=== PATIENT | male | born 1945 | race Caucasian/White ===

== ENCOUNTER 2020-05-04 11:00 | Outpatient (RCR) | payer MEDICARE, SELFPAY ==
[2020-02-16 10:01] VITALS: BMI 30.1
[2020-05-04 10:51] VITALS: BMI 29.7
[2020-05-04 10:56] VITALS: BMI 29.7
== END 2020-05-16 23:59 | disposition home or self-care (01) ==
LOC: ANHDMC 11:00
PROVIDERS: PCP Internal Medicine; Visit Provider Internal Medicine
DX: E11.9 Type 2 diabetes mellitus without complications (principal); Z71.3 Dietary counseling and surveillance
CPT/HCPCS: 97802; 97803

== ENCOUNTER 2020-07-26 11:04 | Outpatient (RCR) | payer MEDICARE, SELFPAY | END 2020-10-11 13:22 | disposition home or self-care (01) | LOC: ANHDMC 11:04 | PROVIDERS: PCP Internal Medicine; Visit Provider Internal Medicine | DX: E11.9 Type 2 diabetes mellitus without complications (principal); Z71.3 Dietary counseling and surveillance | CPT/HCPCS: 97803 ==

== ENCOUNTER 2020-11-10 17:03 | Outpatient (CLI) | payer MEDICARE, SELFPAY | END 2020-11-10 17:04 | disposition home or self-care (01) | LOC: ANHCOVIDVC 17:03 | PROVIDERS: PCP Internal Medicine | DX: Z23 Encounter for immunization (principal) | CPT/HCPCS: 0001A; 91300 ==

== ENCOUNTER 2020-12-01 17:00 | Outpatient (CLI) | payer MEDICARE, SELFPAY | END 2020-12-01 17:01 | disposition home or self-care (01) | LOC: ANHCOVIDVC 17:00 | PROVIDERS: PCP Internal Medicine | DX: Z23 Encounter for immunization (principal) | CPT/HCPCS: 0002A; 91300 ==

== ENCOUNTER 2021-07-28 01:48 | Day surgery (SDC) | payer MEDICARE, SELFPAY ==
[2021-07-12 15:06] VITALS: BMI 30.4
--- NOTE | 2021-07-27 12:26 | PM.HPGS ---
History of Present Illness History of Present Illness Consent: Risks, benefits, and alternatives have been discussed and questions answered. Patient agrees to proceed with procedure. Chief complaint: hx colon polyps Narrative: Norberto Valentin is a 75 year old male Referred for colon cancer screening Review of Systems Review of Systems: All systems reviewed & are unremarkable except as noted in HPI and below PMFSH Family History Family History Mother Family history of renal failure, Onset Age: 87 Patient's mother is Father Patient's father is Sibling Patient's brother is Social History Social History Smoking packs per day: 1 Smoking cigarettes per day: 20.0 Years smoked: 25 Smoking pack-years: 25.00 Smoking status: Former smoker Tobacco type: cigarettes Second hand tobacco smoke exposure: Yes Smoking end date: 09/09/91 Alcohol intake: current Drinks per week: 2 Living arrangements: with family Spiritual care concerns: No Meds Home Medications and Allergies Home Medications Medication Instructions Recorded Confirmed Type losartan 50 mg tablet 50 mg PO DAILY #90 tablet 12/05/20 07/28/21 Rx metformin 500 mg tablet 500 mg PO BID #180 tablet 12/05/20 07/28/21 Rx pravastatin 40 mg tablet 40 mg PO DAILY #90 tablet 12/05/20 07/28/21 Rx lorazepam 0.5 mg tablet 0.5 mg PO BID PRN #30 tablet 06/19/21 07/28/21 Rx aspirin 81 mg PO DAILY 07/12/21 07/28/21 History Allergies Allergy/AdvReac Type Severity Reaction Status Date / Time No Known Allergies Allergy Unknown Verified 07/28/21 09:16 Exam Const: General: alert Orientation/consciousness: patient oriented x3 Resp: Auscultation: clear to auscultation bilaterally Cardio: Rhythm: regular rhythm GI: GI Palp: Yes Soft to palpation and No Tenderness to palpation present (GI) Neuro: General: patient oriented x3 Assessment and Plan Assessment and plan (1) Colon cancer screening: Code(s): Z12.11 - Encounter for screening for malignant neoplasm of colon Status: Acute Assessment and Plan: Colonoscopy with possible biopsy or polypectomy or cautery or injection of substances.
[2021-07-28 09:17] VITALS: BP 147/72; PULSE 58; RESP 16; TEMP 36.6; O2SAT 100; BMI 30.7
[2021-07-28] MEDS: LACTATED RINGERS 1,000 ML 150 ML IV CONT (09:20)
[2021-07-28 09:32] LABS: Glucose Point of Care 151 mg/dl (65-105)
--- NOTE | 2021-07-28 09:49 | WPDANESEPPF ---
Anes - Initial Pre Proc Eval Procedure: Operation Date: 07/28/21 10:15 Proposed Procedures p Screening Colonoscopy - Nick Lara MD Date/Time: 07/28/21 09:49 Surgeon: Nikc Lara MD Pre Op Diagnosis: hx colon polyps Patient Data Age: 75 Gender: M Height: 1.83 m Weight: 102.7 kg Last Vital Signs Temp 97.9 F 07/28/21 09:17 Pulse 58 L 07/28/21 09:17 Resp 16 07/28/21 09:17 BP 147/72 H 07/28/21 09:17 Pulse Ox 100 07/28/21 09:17 Allergies Allergy/AdvReac Type Severity Reaction Status Date / Time No Known Allergies Allergy Unknown Verified 07/28/21 09:16 Home Medications Medication Instructions Recorded Confirmed Type losartan 50 mg tablet 50 mg PO DAILY #90 tablet 12/05/20 07/28/21 Rx metformin 500 mg tablet 500 mg PO BID #180 tablet 12/05/20 07/28/21 Rx pravastatin 40 mg tablet 40 mg PO DAILY #90 tablet 12/05/20 07/28/21 Rx lorazepam 0.5 mg tablet 0.5 mg PO BID PRN #30 tablet 06/19/21 07/28/21 Rx aspirin 81 mg PO DAILY 07/12/21 07/28/21 History Laboratory Tests 07/28/21 09:29 POC Capillary Glucose 151 mg/dl H mg/dl (65-105) Patient hx anesthesia problems: none Family hx anesthesia problems: none Results Review: All pre-operative results and documents have been reviewed as part of the pre-operative evaluation. [facility] Family History Family History Mother Family history of renal failure, Onset Age: 87 Patient's mother is Father Patient's father is Sibling Patient's brother is Social History Social History Smoking packs per day: 1 Smoking cigarettes per day: 20.0 Years smoked: 25 Smoking pack-years: 25.00 Smoking status: Former smoker Tobacco type: cigarettes Second hand tobacco smoke exposure: Yes Smoking end date: 09/09/91 Alcohol intake: current Drinks per week: 2 Living arrangements: with family Spiritual care concerns: No Anes - Eval Final PreProcedure Day of Procedure 07/28/21 09:49 Patient weight: obese Heart: regular rate and rhythm Lungs: clear to auscultation Airway: Mallampati scale class II Neurological: alert and oriented Last oral intake: >/= 8 hours ASA classification: III Emergent: no Anesthetic plan: proceed Anesthesia type and monitoring: general GIVS and standard monitoring Results Review: All pre-operative results and documents have been reviewed as part of the pre-operative evaluation. Informed Consent: The patient's anesthetic plan and its attendant risks and benefits were discussed with the patient/family/POA. Questions were solicited and answers provided to the satisfaction of the patient/family/POA.
[2021-07-28 10:29] VITALS: BP 94/50; PULSE 62; RESP 18; O2SAT 99
[2021-07-28 10:39] VITALS: BP 111/47; PULSE 55; RESP 13; O2SAT 98
[2021-07-28 10:49] VITALS: BP 114/49; PULSE 61; RESP 17; O2SAT 99
== END 2021-07-28 10:56 | disposition home or self-care (01) ==
PROVIDERS: PCP Internal Medicine; Visit Provider Internal Medicine Gastroenterology
PROC: 0DJD8ZZ Inspection of Lower Intestinal Tract, Via Natural or Artificial Opening Endoscopic (ICD-10-PCS; CPT 45378; principal; 2021-07-28 10:15)
DX: Z12.11 Encounter for screening for malignant neoplasm of colon (principal); K63.5 Polyp of colon; K57.30 Diverticulosis of large intestine without perforation or abscess without bleeding; Z79.82 Long term (current) use of aspirin; Z79.84 Long term (current) use of oral hypoglycemic drugs; Z87.891 Personal history of nicotine dependence; E66.9 Obesity, unspecified; Z68.30 Body mass index [BMI] 30.0-30.9, adult
CPT/HCPCS: 45385; 82948; 88305; J7120

== ENCOUNTER 2022-01-10 08:07 | Outpatient (CLI) | payer MEDICARE, SELFPAY ==
--- NOTE | ~2022-01-10 | NM_ITS ---
EXAMINATION: NM stress w perf spect multi DATE: 01/10/2022 10:35 INDICATION: Chest pain. TECHNIQUE: Rest images were obtained following intravenous administration of 10.7 mCi Tc99m tetrofosm in (Myoview). The patient performed an exercise activity. At peak exercise, 31.6 mCi Tc99m tetrofosmi n (Myoview) was administered intravenously, and supine and prone stress images were obtained. Data wa s reconstructed into short axis and horizontal and vertical long axis SPECT images. Gated SPECT image s were also obtained. COMPARISON: None. FINDINGS: There is a moderate-sized, mild, fixed perfusion defect involving apical septal, mid collette septal, and mid to basal anterior segments of left ventricle, consistent with infarct. No reversible component to suggest ischemia. There is inferoseptal hypokinesis. Left ventricular ejection fractio n measures 41%. IMPRESSION: 1. Moderate-sized area of mild infarct involving apical septal, mid anteroseptal, and mid to basal an terior segments of left ventricle. 2. Inferoseptal hypokinesis with left ventricular ejection fraction measuring 41%. Reviewed, dictated and finalized at location B. IMPRESSION: 1. Moderate-sized area of mild infarct involving apical septal, mid anterosepta l, and mid to basal anterior segments of left ventricle. 2. Inferoseptal hypokinesis with left ventricular ejection fraction measuring 4 1%.
--- NOTE | 2022-01-10 09:09 | EST_ITS ---
Patient Info Name: Norberto Valentin Age: 76 years : 1945 Gender: Male Ht: 72 in Wt: 220 lbs BSA: 2.27 m2 Exam Date: 01/10/2022 9:19 AM Exam Location: [facility] Stress Patient Status: Outpatient Admit Date: 01/10/2022 Staff Ordering Physician: Young Robb DO Attending Provider: Young Robb DO Exercise Technologist: Cyrus Mas RDCS, RT Exercise Physician: Pato Hardy DO Exam Type: CA stress test treadmill w NM Study Info Indications R07.9 - Chest pain, unspecified A nuclear stress test was performed. Summary 1. 1. Negative Karl exercise stress test for ischemic ST changes by ECG criteria. 2. 2. Reduced functional capacity, achieving 6 METs of workload. 3. 3. Baseline hypertension. 4. 4. Appropriate HR response to exercise. 5. 5. Appropriate HR recovery at 1 minute post exercise. 6. 6. Nuclear scan to follow and will be reported separately. Please correlate with it. 7. 7. Patient informed of the above results. Protocol: Karl Stress ECG Details Stage: REST Duration (min): 4 min : 59 sec Speed (mph): 0.0 Grade (%): 0 HR (bpm): 61 SBP (mmHg): 142 DBP (mmHg): 77 METS: --- Stage: REST Duration (min): 5 min : 3 sec Speed (mph): 0.0 Grade (%): 0 HR (bpm): 61 SBP (mmHg): 142 DBP (mmHg): 77 METS: --- Stage: STAGE 1 Duration (min): 1 min : 0 sec Speed (mph): 1.7 Grade (%): 10 HR (bpm): 88 SBP (mmHg): 142 DBP (mmHg): 77 METS: --- Stage: STAGE 1 Duration (min): 2 min : 0 sec Speed (mph): 1.7 Grade (%): 10 HR (bpm): 101 SBP (mmHg): 142 DBP (mmHg): 77 METS: --- Stage: STAGE 1 Duration (min): 3 min : 0 sec Speed (mph): 1.7 Grade (%): 10 HR (bpm): 110 SBP (mmHg): 149 DBP (mmHg): 74 METS: --- Stage: STAGE 2 Duration (min): 1 min : 0 sec Speed (mph): 2.5 Grade (%): 12 HR (bpm): 125 SBP (mmHg): 149 DBP (mmHg): 74 METS: --- Stage: STAGE 2 Duration (min): 1 min : 8 sec Speed (mph): 2.5 Grade (%): 12 HR (bpm): 128 SBP (mmHg): 149 DBP (mmHg): 74 METS: --- Stage: RECOVERY Duration (min): 0 min : 51 sec Speed (mph): 0.0 Grade (%): 0 HR (bpm): 125 SBP (mmHg): 152 DBP (mmHg): 72 METS: --- Stage: RECOVERY Duration (min): 1 min : 51 sec Speed (mph): 0.0 Grade (%): 0 HR (bpm): 109 SBP (mmHg): 152 DBP (mmHg): 72 METS: --- Stage: RECOVERY Duration (min): 2 min : 51 sec Speed (mph): 0.0 Grade (%): 0 HR (bpm): 97 SBP (mmHg): 167 DBP (mmHg): 73 METS: --- Stage: RECOVERY Duration (min): 3 min : 51 sec Speed (mph): 0.0 Grade (%): 0 HR (bpm): 89 SBP (mmHg): 167 DBP (mmHg): 73 METS: --- Stage: RECOVERY Duration (min): 4 min : 51 sec Speed (mph): 0.0 Grade (%): 0 HR (bpm): 83 SBP (mmHg): 159 DBP (mmHg): 71 METS: ---
== END 2022-01-10 08:08 | disposition home or self-care (01) ==
PROVIDERS: PCP Internal Medicine; Visit Provider Internal Medicine
DX: R07.89 Other chest pain (principal); I21.9 Acute myocardial infarction, unspecified
CPT/HCPCS: 78452; 93017; A9502

== ENCOUNTER 2022-02-26 13:35 | Outpatient (CLI) | payer MEDICARE, SELFPAY ==
--- NOTE | 2022-02-26 14:01 | ECHO_ITS ---
Patient Info Name: Norberto Valentin Age: 76 years : 1945 Gender: Male Ht: 72 in Wt: 220 lbs BSA: 2.27 m2 HR: 61 bpm BP: 131 / 73 mmHg Technical Quality: Good Exam Date: 02/26/2022 2:33 PM Exam Location: [facility] Patient Status: Outpatient Admit Date: 02/26/2022 Staff Ordering Physician: Pato Hardy DO Residential Door Installer: Zaira Cooper RDCS Attending Provider: Pato Hardy DO Referring Physician: Antony IBRAHIM; Exam Type: CA echo doppler color flow Study Info Indications - dyspnea Complete two-dimensional, color flow and Doppler transthoracic echocardiogram is performed. Summary 1. Complete two-dimensional, color flow and Doppler transthoracic echocardiogram is performed. 2. Left ventricular chamber dimension is normal. 3. There is moderate concentric increased left ventricular wall thickness. 4. Left ventricular septal wall motion is abnormal with septal motion related to bundle branch block. 5. Left ventricular systolic function is preserved, estimated at 50-55%. 6. Basal to mid inferior wall is thin and akinetic. 7. The left ventricular diastolic function is grade I diastolic dysfunction. 8. E/e' 10 is mildly elevated. 9. Global longitudinal strain is abnormal at -13.2%. 10. Left atrial chamber dimension is mildly enlarged. 11. There is mild aortic valve sclerosis. 12. There is mild mitral valve regurgitation. 13. There is mild tricuspid valve regurgitation. 14. No pulmonary hypertension, estimated pulmonary arterial systolic pressure is 21 mmHg. Left Ventricle Left ventricular systolic function is preserved, estimated at 50-55%. Basal to mid inferior wall is thin and akinetic. E/e' 10 is mildly elevated. Global longitudinal strain is abnormal at -13.2%. Left ventricular chamber dimension is normal. There is moderate concentric increased left ventricular wall thickness. Left ventricular septal wall motion is abnormal with septal motion related to bundle branch block. The left ventricular diastolic function is grade I diastolic dysfunction. Right Ventricle Right ventricular chamber dimension is normal. Right ventricular systolic function is normal. Left Atria Left atrial chamber dimension is mildly enlarged. Right Atria Right atrial chamber dimension is normal. Aortic Valve The aortic valve is trileaflet. There is mild aortic valve sclerosis. There is no aortic valve stenosis. There is no aortic valve regurgitation. Pulmonic Valve There is no pulmonic regurgitation. Mitral Valve There is no mitral valve stenosis. There is mild mitral valve regurgitation. Tricuspid Valve There is mild tricuspid valve regurgitation. No pulmonary hypertension, estimated pulmonary arterial systolic pressure is 21 mmHg. Pericardium/Pleural There is no pericardial effusion. Inferior Vena Cava Normal inferior vena cava with >50% collapse upon inspiration consistent with normal right atrial pressure, 5 mmHg. Aorta The aortic root size at the sinus of Valsalva is normal. Left Ventricular Outflow Tract Name Value Normal LVOT 2D LVOT Diameter 2.0 cm LVOT Doppler LVOT Pe
== END 2022-02-26 13:36 | disposition home or self-care (01) ==
LOC: ANHCARD 13:37
PROVIDERS: PCP Internal Medicine; Visit Provider Internal Medicine Cardiovascular Disease
DX: R06.00 Dyspnea, unspecified (principal); I34.0 Nonrheumatic mitral (valve) insufficiency; I35.1 Nonrheumatic aortic (valve) insufficiency; I36.1 Nonrheumatic tricuspid (valve) insufficiency
CPT/HCPCS: 93306

== ENCOUNTER 2022-08-20 12:14 | Outpatient (CLI) | payer MEDICARE, SELFPAY ==
[2022-08-20 13:10] LABS: Appearance Urine Clear (Clear); Bilirubin Urine Negative (Negative); Blood Urine Negative (Negative); Glucose Urine UA Trace mg/dL (Negative); Ketones Urine Negative (Negative); Leukocyte Esterase Ur Negative LEU/UL (Negative); Nitrate Urine Negative (Negative); Protein Urine Negative (Negative); Specific Grav Ur >= 1.030 (1.001-1.035); Urobilinogen Urine 0.2 mg/dL (<2.0)
[2022-08-20 13:30] LABS: Mucus Urine Rare /lpf; RBC Urine 0-2 /hpf (0-2); Squamous Epithelial Cell Urine Rare /hpf (Few); WBC Urine 0-3 /hpf
[2022-08-20 13:35] LABS: Add Urine Microscopic? YES; Color Urine Light Yellow (Yellow)
== END 2022-08-20 12:15 | disposition home or self-care (01) ==
PROVIDERS: PCP Internal Medicine; Visit Provider Internal Medicine
DX: R30.0 Dysuria (principal)
CPT/HCPCS: 81001

== ENCOUNTER 2022-08-25 22:09 | Emergency (ER) | payer MEDICARE, SELFPAY ==
--- NOTE | ~2022-08-25 | CT_ITS ---
EXAMINATION: CTA brain carotid DATE: 08/26/2022 01:13 INDICATION: Right-sided headache and weakness TECHNIQUE: Computed tomographic angiography (CTA) of the head was performed without and with 100 mL O mnipaque-350 intravenous contrast. CTA of the neck was performed with intravenous contrast. The dose- length product was 1846.86 mGy-cm. Maximum intensity projection and volume rendered 3D-reconstruction s were created by the technologist on a separate workstation. Automated exposure control and iterativ e reconstruction technique were employed. COMPARISON: None. FINDINGS: HEAD CTA: There is no acute intraparenchymal hemorrhage. No evidence of mass lesion. No evidence of a cute infarction. There is mild periventricular and subcortical hypodensity probably related to small vessel ischemic disease. There is mild prominence of the sulci and ventricles related to cerebral atr ophy. Intracranial calcified cerebral atherosclerosis is noted. There are no extra-axial collections. There is no mass effect or midline shift. The orbits and soft tissues are unremarkable. The visualiz ed sinuses and mastoid air cells are well aerated. There is no significant stenosis of the basilar artery or posterior cerebral arteries. There is no si gnificant stenosis of the intracranial internal carotid arteries or the anterior or middle cerebral a rteries. The anterior communicating artery is normal. The bilateral posterior communicating arteries are diminutive in caliber. There is no aneurysm. NECK CTA: The thyroid gland is unremarkable. The submandibular and parotid glands are symmetric. Ther e is no lymphadenopathy. There are no masses identified. The airway is unremarkable. There is mild ce rvical spondylosis. The superior mediastinum is unremarkable. There is dependent atelectasis in the v isualized upper lobes. There is 0% stenosis of the proximal right internal carotid artery relative to normal distal artery l umen diameter (NASCET criteria). There is 0% stenosis of the proximal left internal carotid artery re lative to normal distal artery lumen diameter. IMPRESSION: 1. No acute intracranial abnormality. Normal head CTA. 2. 0% stenosis of the proximal right internal carotid artery relative to normal distal artery lumen d iameter (NASCET criteria). 3. 0% stenosis of the proximal left internal carotid artery relative to normal distal artery lumen di ameter. Reviewed, dictated and finalized at location A. ER [employer]ICATOR IMPRESSION: 1. No acute intracranial abnormality. Normal head CTA. 2. 0% stenosis of the proximal right internal carotid artery relative to normal distal artery lumen diameter (NASCET criteria). 3. 0% stenosis of the proximal left internal carotid artery relative to normal distal artery lumen diameter.
[2022-08-25 22:13] VITALS: BP 144/85; PULSE 72; RESP 18; TEMP 36.6; O2SAT 97
[2022-08-25 22:23] VITALS: PULSE 71
[2022-08-26 00:14] LABS: Anion Gap 7 mmol/L (8-16); Blood Urea Nitrogen 13 mg/dL (9-20); Calcium 9.1 mg/dL (8.4-10.2); Carbon Dioxide 27 mmol/L (22-30); Chloride 100 mmol/L (98-107); Estimated Glomerular Filt Rate 59; Glucose 144 mg/dL (65-110); Potassium 4.5 mmol/L (3.4-5.0); Sodium 134 mmol/L (137-145)
[2022-08-26 00:18] LABS: INR 1.1; Prothrombin Time 13.4 Seconds (11.1-14.7)
[2022-08-26 00:19] LABS: Partial Thromboplastin Time 26.3 SECONDS (22.3-36.8)
[2022-08-26 00:20] LABS: Basophils Absolute Auto 0.1 K/mm3 (0.0-0.1); Basophils Percent Auto 0.5 % (0.2-1.2); Eosinophils Absolute Auto 0.1 K/mm3 (0-0.3); Eosinophils Percent Auto 1.1 % (0-4.4); Hematocrit 45.9 % (42.0-52.0); Hemoglobin 15.6 g/dL (14.0-18.0); Immature Granulocyte Absolute 0.03 K/mm3 (0.00-0.031); Immature Granulocyte Percent A 0.3 % (0-0.5); Lymphocytes Absolute Auto 3.53 K/mm3 (0.9-3.2); Lymphocytes Percent Auto 35.3 % (18.3-44.2); Mean Corpuscular Hemoglobin 30.4 pg (26-34); Mean Corpuscular Volume 89.5 fl (80-100); Mean Platelet Volume 10.4 fl (7.4-10.4); Monocytes Absolute Auto 0.7 K/mm3 (0.1-0.6); Monocytes Percent Auto 7.1 % (2.6-8.5); Neutrophils Absolute Auto 5.6 K/mm3 (1.3-6.7); Neutrophils Percent Auto 55.7 % (45.5-73.1); Platelet Count Result 170 k/mm3 (150-375); Red Blood Count 5.13 M/mm3 (4.6-6.20); Red Cell Distribution Width 12.8 % (11.5-14.5)
--- NOTE | 2022-08-26 03:02 | ED.WEAKNESS ---
HPI - Weakness General Chief complaint: Weakness Stated complaint: WEAKNESS, ANXIETY, STRESS ATTACKS Time Seen by Provider: 08/25/22 22:31 History of Present Illness HPI Narrative: Patient is a 76-year-old male who presents ER with multiple complaints. Main complaint is intermittent headaches to the right side behind the ear occurring over the last month. Was seen by his PCP and started on Ativan for anxiety. Patient has no change in vision or hearing. 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 Patient denies trauma to the head. Patient has no weakness of the arm or leg. He also reports general fatigue and decreased appetite for similar amount of time. Has not found a way to increase his appetite. Also he reports today that he is having urinary frequency where he is having to urinate every 15 minutes. No dysuria. He is unsure if he has enlarged prostate. On chart review shows history of elevated PSA. Related Data Home Medications Medication Instructions Recorded Confirmed aspirin 81 mg tablet 81 mg PO DAILY 07/12/21 07/24/22 Allergies Allergy/AdvReac Type Severity Reaction Status Date / Time No Known Allergies Allergy Unknown Verified 07/24/22 13:13 Review of Systems Review of Systems: All systems reviewed & are unremarkable except as noted in HPI and below Constitutional: Constitutional: Denies chills, Reports fatigue and Denies fever(s) Eyes: Eyes: Denies change in vision and Denies photophobia ENT: Denies nasal congestion and Denies sore throat Comments: Tinnitus Cardiovascular: Cardiovascular: Denies chest pain, Denies rapid heart rate and Denies radiating jaw, neck or arm pain Respiratory: Respiratory: Denies cough and Denies dyspnea Gastrointestinal: Gastrointestinal: Denies abdominal pain, Denies nausea and Denies vomiting Genitourinary: Genitourinary: Denies hematuria, Denies dysuria and Reports urinary frequency [facility] Past Medical History Medical History (Updated 08/26/22 @ 04:01 by Georges Nuno MD) Anxiety CAD (coronary artery disease) CRD (chronic renal disease), stage III Elevated PSA History of smoking Obstructive sleep apnea (adult) (pediatric) Other fatigue Personal history of colonic polyps Pure hypercholesterolemia Type 2 diabetes mellitus without complications Family History Family History Mother Family history of renal failure, Onset Age: 87 Patient's mother is Father Patient's father is Sibling Patient's brother is Social History Social History Smoking packs per day: 1 Smoking cigarettes per day: 20.0 Years smoked: 25 Smoking pack-years: 25.00 Smoking status: Former smoker Tobacco type: cigarettes Second hand tobacco smoke exposure: Yes Smoking end date: 09/09/91 Alcohol intake: current Drinks per week: 2 Lack of Transportation: No Lack of Food: Never True Current Housing: I Have Housing Concerned About Future Housing: No Difficulty Paying Gas/Electric Bills: No Difficulty Paying for Meds: No Currently Unemployed: No Education: High School Diploma/GED Difficulty w/ Childcare or Family Care: No Spiritual care concerns: No Exam Narrative: GENERAL: Well-appearing, well-nourished, and in no acute distress. HEAD: Normocephalic, atraumatic. Sebaceous cyst of scalp. EYES: PERRL and EOMI. ENT: Mucous membranes moist. CHEST: Clear to auscultation. No respiratory distress. HEART: Regular rate and rhythm. Normal peripheral pulses. ABDOMEN: Soft, nontender, nondistended. EXTREMITIES: Normal range of motion. No edema. SKIN: Warm, dry, no rash. NEURO: Alert and oriented x3. PSYCH: Normal mood and affect. Course Course Emergency Course: Unremarkable evaluation. Discharged with some Flomax for his urinary frequency. Recommend follow-up with
[2022-08-26 03:32] LABS: Add Urine Microscopic? YES; Appearance Urine Clear (Clear); Bilirubin Urine Negative (Negative); Blood Urine Trace-Intact (Negative); Color Urine Light Yellow (Yellow); Glucose Urine UA Negative (Negative); Ketones Urine 1+ mg/dL (Negative); Leukocyte Esterase Ur Negative LEU/UL (Negative); Nitrate Urine Negative (Negative); Protein Urine Negative (Negative); Specific Grav Ur <= 1.005 (1.001-1.035); Urobilinogen Urine 0.2 mg/dL (<2.0)
[2022-08-26 03:35] LABS: Mucus Urine Rare /lpf; RBC Urine 0-2 /hpf (0-2); WBC Urine 0-3 /hpf
== END 2022-08-26 05:00 | disposition home or self-care (01) ==
PROVIDERS: Emergency Provider Emergency Medicine; PCP Internal Medicine
DX: R51.9 Headache, unspecified (principal); R35.0 Frequency of micturition; I25.10 Atherosclerotic heart disease of native coronary artery without angina pectoris; E11.22 Type 2 diabetes mellitus with diabetic chronic kidney disease; N18.30 Chronic kidney disease, stage 3 unspecified; E78.00 Pure hypercholesterolemia, unspecified; G47.33 Obstructive sleep apnea (adult) (pediatric); Z86.010 Personal history of colon polyps; Z87.891 Personal history of nicotine dependence; Z79.82 Long term (current) use of aspirin; Z79.84 Long term (current) use of oral hypoglycemic drugs
CPT/HCPCS: 36415; 70496; 70498; 80048; 81001; 85025; 85610; 85730; 99284; Q9967

== ENCOUNTER 2022-12-11 15:00 | Outpatient (CLI) | payer MEDICARE, SELFPAY ==
--- NOTE | ~2022-12-11 | CT_ITS ---
EXAMINATION: CT chest high resolution wo dc DATE: 12/11/2022 15:18 INDICATION: Lung nodule TECHNIQUE: Computed tomography (CT) of the chest was performed without intravenous contrast. The dose -length product (DLP) was 183.73 mGy-cm. Automated exposure control and iterative reconstruction tech nique were employed. COMPARISON: None FINDINGS: There is an 8 mm subsolid nodule in the right lower lobe on image 65. There is mild depende nt atelectasis. No pathologically enlarged thoracic lymph nodes are identified. The heart size is nor mal. No pleural effusion or pneumothorax. Calcified coronary artery atherosclerosis is noted. There i s mild thoracic spondylosis. There is a 3.8 cm cyst of the right kidney. IMPRESSION: 1. 8 mm subsolid nodule of the right lower lobe. Follow-up CT in three months is recommended. Reviewed, dictated and finalized at location B. IMPRESSION: 1. 8 mm subsolid nodule of the right lower lobe. Follow-up CT in three months i s recommended.
== END 2022-12-11 15:01 | disposition home or self-care (01) ==
PROVIDERS: PCP Internal Medicine; Referring Provider Internal Medicine Cardiovascular Disease; Visit Provider Internal Medicine
DX: R91.1 Solitary pulmonary nodule (principal)
CPT/HCPCS: 71250

== ENCOUNTER 2023-03-01 14:29 | Outpatient (CLI) | payer MEDICARE, SELFPAY ==
--- NOTE | ~2023-03-01 | CT_ITS ---
CT Scan of the Chest without Contrast: Clinical Indication: Solitary pulmonary nodule Technique: Contiguous sections were acquired throughout the chest without intravenous contrast. Dose reduction technique was used on this scan by utilizing automated exposure control and iterative recon struction technique. The dose-length product (DLP) was 238.87 mGy-cm. COMPARISON: 12/11/2022 Findings: There is no evidence of any significant mediastinal, hilar or axillary lymphadenopathy. Coronary iman ry calcifications are present. There is no evidence of pleural or pericardial effusion. Stable right lower lobe groundglass pulmonary nodule (axial image 67). Stable small nodule along the right fissures (axial image 60). Images through the upper abdomen reveal no abnormalities. Impression: Stable pulmonary nodules, as detailed above. Reviewed, dictated and finalized at location . Impression: Stable pulmonary nodules, as detailed above.
== END 2023-03-01 14:30 | disposition home or self-care (01) ==
PROVIDERS: PCP Internal Medicine; Visit Provider Internal Medicine Cardiovascular Disease
DX: R91.8 Other nonspecific abnormal finding of lung field (principal)
CPT/HCPCS: 71250

== ENCOUNTER 2023-09-20 10:35 | Emergency (ER) | payer MEDICARE, SELFPAY ==
--- NOTE | 2023-09-20 10:53 | ED.URI ---
HPI - URI/Sore Throat General Chief Complaint: Upper Respiratory Infection Stated Complaint: Cough;Congestion Source: patient, RN notes reviewed and old records reviewed Mode of arrival: ambulatory Limitations: no limitations History of Present Illness HPI Narrative: 76-year-old male patient presents to [facility] with complaint of cough, congestion, sinus pressure for over 1 week. Patient taking [id number] medications with no relief. Patient denies weakness, dizziness, chest pain, shortness of breath. MD elicited complaint: cough, nasal congestion and sinus pain Onset (ago): week(s) (1) Related Data Home Medications Medication Instructions Recorded Confirmed aspirin 81 mg tablet 81 mg PO DAILY 07/12/21 09/20/23 sertraline 25 mg tablet 25 mg PO DAILY 09/20/23 09/20/23 Allergies Allergy/AdvReac Type Severity Reaction Status Date / Time No Known Allergies Allergy Unknown Verified 09/20/23 10:50 Review of Systems Constitutional: Constitutional: Reports no additional constitutional complaints, Denies body ache(s), Denies chills, Denies fatigue, Denies fever(s) and Reports headache(s) Eyes: Eyes: Reports no additional eye complaints and Denies blurry vision ENT: Reports system reviewed and no additional complaints, except as documented, Denies vertigo, Denies dizziness, Denies ear discharge, Denies otalgia, Denies facial pain, Denies headache(s), Reports nasal congestion, Reports nasal discharge, Reports sinus pain, Reports sinus pressure and Denies sore throat Cardiovascular: Cardiovascular: Reports no additional cardiovascular complaints, Denies chest pain, Denies chest pain at rest, Denies rapid heart rate and Denies dyspnea Respiratory: Respiratory: Reports no additional respiratory complaints, Reports chest congestion, Reports cough, Reports pain on inspiration, Denies pain with cough and Denies dyspnea Gastrointestinal: Gastrointestinal: Denies abdominal pain, Denies diarrhea, Denies nausea and Denies vomiting Integumentary/Breasts: Skin/Breast: Denies rash Neurologic: Reports system reviewed and no additional complaints, except as documented, Denies vertigo, Denies dizziness and Denies headache(s) Endocrine: Endocrine: Denies fatigue PMFSH Past Medical History Medical History Anxiety CAD (coronary artery disease) CRD (chronic renal disease), stage III Elevated PSA History of smoking Obstructive sleep apnea (adult) (pediatric) Other fatigue Personal history of colonic polyps Pure hypercholesterolemia Type 2 diabetes mellitus without complications Family History Family History Mother Family history of renal failure, Onset Age: 87 Patient's mother is Father Patient's father is Sibling Patient's brother is Social History Social History Smoking packs per day: 1 Smoking cigarettes per day: 20.0 Years smoked: 25 Smoking pack-years: 25.00 Smoking status: Former smoker Tobacco type: cigarettes Second hand tobacco smoke exposure: Yes Smoking end date: 09/09/91 Alcohol intake: former Substance use: never Substance use type: does not use Lack of Transportation: No Lack of Food: Never True Current Housing: I Have Housing Concerned About Future Housing: No Difficulty Paying Gas/Electric Bills: No Difficulty Paying for Meds: No Currently Unemployed: No Education: High School Diploma/GED Difficulty w/ Childcare or Family Care: No Living arrangements: with family Spiritual care concerns: No Comments At the time of my signature, I reviewed and agree with the nursing past medical, surgical, social, and family history. There is no relevant family history pertinent to the patient complaint. Exam Const: General: cooperative, health
[2023-09-20 10:55] VITALS: BP 136/87; PULSE 58; RESP 16; TEMP 36.8; O2SAT 100
== END 2023-09-20 11:03 | disposition home or self-care (01) ==
PROVIDERS: Emergency Provider Registered Nurse; PCP Internal Medicine
DX: J01.90 Acute sinusitis, unspecified (principal); B96.89 Other specified bacterial agents as the cause of diseases classified elsewhere; I25.10 Atherosclerotic heart disease of native coronary artery without angina pectoris; E11.22 Type 2 diabetes mellitus with diabetic chronic kidney disease; N18.6 End stage renal disease; Z79.82 Long term (current) use of aspirin; Z87.891 Personal history of nicotine dependence
CPT/HCPCS: 99213; G0463